=== PATIENT | female | born 1945 | race Two or more races ===

== ENCOUNTER → 2017-02-23 | Emergency (ER) | payer OTHER ==
[~2017-02-23] VITALS: Ht 160 cm; Wt 80.7 kg
[~2017-02-23] MED LIST: ACCUPRIL40 MG; ADULT ASPIRIN81 MG; CARVEDILOL3.125 MG; COREG CR10 MG; DILTIAZEM 24HR120 MG; NORVASC5 MG; PRAVASTATIN SOD40 MG
== END | disposition home or self-care (01) ==
LOC: ER 12:01
DX: N39.0 Urinary tract infection, site not specified (principal); N30.90 Cystitis, unspecified without hematuria

== ENCOUNTER 2017-06-19 23:00 | Emergency (ER) | payer OTHER ==
[~2017-06-19] VITALS: Ht 157.5 cm; Wt 80.7 kg
[2017-06-19] MEDS ORDERED: ASA325 M1 (23:19)
[2017-06-19] MEDS ORDERED: PRAVASTATIN SOD40 MG (23:19)
[2017-06-19] MEDS ORDERED: NEURONTIN300 MG (23:19)
[2017-06-19] MEDS ORDERED: CALTRATE 600 +1 EACH (23:20)
[2017-06-19] MEDS ORDERED: ALENDRONATE SOD70 MG (23:20)
[2017-06-19] MEDS ORDERED: OMEGA 3 1,0001 EACH (23:20)
== END 2017-06-20 07:08 | disposition home or self-care (01) ==
LOC: ER 23:00
DX: R00.2 Palpitations (principal)

== ENCOUNTER 2017-09-17 02:01 | Emergency (ER) | payer OTHER ==
[~2017-09-17] VITALS: Ht 160 cm; Wt 80.7 kg
[~2017-09-17 02:01] MED LIST changes: +ALENDRONATE SOD70 MG; +ASA325 M1; +CALTRATE 600 +1 EACH; +NEURONTIN300 MG; +OMEGA 3 1,0001 EACH
[2017-09-17] MEDS ORDERED: AVALIDE 300-121 EACH (02:06)
== END 2017-09-17 14:48 | disposition home or self-care (01) ==
LOC: ER 02:01
DX: I10 Essential (primary) hypertension (principal)

== ENCOUNTER 2017-10-04 03:03 | Emergency (ER) | payer OTHER ==
[~2017-10-04] VITALS: Ht 157.5 cm; Wt 81.6 kg
[~2017-10-04 03:03] MED LIST changes: +AVALIDE 300-121 EACH
== END 2017-10-04 06:39 | disposition home or self-care (01) ==
LOC: ER 03:03
DX: I10 Essential (primary) hypertension (principal)

== ENCOUNTER 2017-11-16 03:31 | Emergency (ER) | payer OTHER ==
[~2017-11-16] VITALS: Ht 157.5 cm; Wt 85.7 kg
[2017-11-16] MEDS ORDERED: AVALIDE 300-121 EACH PO (04:00)
[2017-11-16] MEDS ORDERED: CARVEDILOL3.125 MG PO (04:01)
[2017-11-16] MEDS ORDERED: PRAVASTATIN SOD40 MG PO (04:02)
[2017-11-16] MEDS ORDERED: IRBESARTAN300 MG PO (04:02)
== END 2017-11-16 08:22 | disposition home or self-care (01) ==
LOC: ER 03:31
DX: I16.0 Hypertensive urgency (principal); I10 Essential (primary) hypertension

== ENCOUNTER 2017-11-20 14:40 | Emergency (ER) | payer OTHER ==
[~2017-11-20] VITALS: Ht 152.4 cm; Wt 85.7 kg
[~2017-11-20 14:40] MED LIST changes: +AVALIDE 300-121 EACH PO; +CARVEDILOL3.125 MG PO; +IRBESARTAN300 MG PO; +PRAVASTATIN SOD40 MG PO
== END 2017-11-20 17:59 | disposition home or self-care (01) ==
LOC: ER 14:40
DX: M77.11 Lateral epicondylitis, right elbow (principal); M19.012 Primary osteoarthritis, left shoulder; M25.511 Pain in right shoulder

== ENCOUNTER 2017-12-15 10:19 | Emergency (ER) | payer OTHER ==
[~2017-12-15] VITALS: Ht 157.5 cm; Wt 81.6 kg
[2017-12-15] MEDS ORDERED: COREG (10:35)
[2017-12-15] MEDS ORDERED: ALENDRONAT70 MG/75 M (10:36)
[2017-12-15] MEDS ORDERED: CALTRATE 600+D1 EAC1 (10:37)
[2017-12-15] MEDS ORDERED: OMEGA 3 1,0001 EACH (10:37)
== END 2017-12-15 12:16 | disposition home or self-care (01) ==
LOC: ER 10:19
DX: L02.214 Cutaneous abscess of groin (principal)

== ENCOUNTER → 2017-12-24 | Emergency (ER) | payer OTHER ==
[~2017-12-24] VITALS: Ht 160 cm; Wt 85.7 kg
[~2017-12-24] MED LIST changes: +ALENDRONAT70 MG/75 M; +CALTRATE 600+D1 EAC1; +COREG
== END | disposition left against medical advice (07) ==
LOC: ER 04:39
DX: L02.214 Cutaneous abscess of groin (principal); L72.8 Other follicular cysts of the skin and subcutaneous tissue; B95.2 Enterococcus as the cause of diseases classified elsewhere

== ENCOUNTER 2018-05-03 14:52 | Outpatient (CLI) | payer OTHER | END 2018-05-03 15:12 | disposition home or self-care (01) | LOC: RAD 14:52 | DX: M25.551 Pain in right hip (principal); M25.552 Pain in left hip; M25.561 Pain in right knee; M25.562 Pain in left knee; M19.011 Primary osteoarthritis, right shoulder; M19.012 Primary osteoarthritis, left shoulder; M25.531 Pain in right wrist; M54.2 Cervicalgia; M54.5 Low back pain ==

== ENCOUNTER → 2018-05-17 | Outpatient (CLI) | payer OTHER | END | disposition home or self-care (01) | LOC: NUCLEAR 13:36 | DX: M81.0 Age-related osteoporosis without current pathological fracture (principal) ==

== ENCOUNTER → 2018-05-30 | Emergency (ER) | payer OTHER ==
[~2018-05-30] VITALS: Ht 157.5 cm; Wt 85.7 kg
== END | disposition left against medical advice (07) ==
LOC: ER 23:14
DX: Z53.20 Procedure and treatment not carried out because of patient's decision for unspecified reasons (principal)

== ENCOUNTER 2018-06-19 11:57 | Emergency (ER) | payer OTHER ==
[~2018-06-19] VITALS: Ht 152.4 cm; Wt 76.7 kg
== END 2018-06-19 20:01 | disposition home or self-care (01) ==
LOC: ER 11:57
DX: R19.7 Diarrhea, unspecified (principal)

== ENCOUNTER → 2018-06-19 | Emergency (ER) | payer OTHER | END | disposition left against medical advice (07) | LOC: ER 22:48 | DX: Z53.20 Procedure and treatment not carried out because of patient's decision for unspecified reasons (principal) ==

== ENCOUNTER 2018-07-29 02:38 | Emergency (ER) | payer OTHER ==
[~2018-07-29] VITALS: Ht 157.5 cm; Wt 83.9 kg
[2018-07-29] MEDS ORDERED: MEDROL8 MG PO (08:23)
[2018-07-29] MEDS ORDERED: ZYNCOF 20-400120 ML PO (08:23)
== END 2018-07-29 08:36 | disposition home or self-care (01) ==
LOC: ER 02:38
DX: T78.1XXA Other adverse food reactions, not elsewhere classified, initial encounter (principal); R21 Rash and other nonspecific skin eruption

== ENCOUNTER 2018-08-14 05:55 | Emergency (ER) | payer OTHER ==
[~2018-08-14] VITALS: Ht 157.5 cm; Wt 85.7 kg
[~2018-08-14 05:55] MED LIST changes: +MEDROL8 MG PO; +ZYNCOF 20-400120 ML PO
== END 2018-08-14 09:59 | disposition home or self-care (01) ==
LOC: ER 05:55
DX: S90.31XA Contusion of right foot, initial encounter (principal); R60.0 Localized edema; T78.1XXA Other adverse food reactions, not elsewhere classified, initial encounter; W22.8XXA Striking against or struck by other objects, initial encounter; X58.XXXA Exposure to other specified factors, initial encounter; Y93.89 Activity, other specified; Y92.89 Other specified places as the place of occurrence of the external cause; Y99.8 Other external cause status

== ENCOUNTER 2018-09-28 11:37 | Emergency (ER) | payer OTHER ==
[~2018-09-28] VITALS: Ht 157.5 cm; Wt 85.7 kg
== END 2018-09-28 16:53 | disposition home or self-care (01) ==
LOC: ER 11:37
DX: N64.4 Mastodynia (principal); N61.0 Mastitis without abscess

== ENCOUNTER → 2018-12-02 | Emergency (ER) | payer OTHER ==
[~2018-12-02] VITALS: Ht 157.5 cm; Wt 85.7 kg
[~2018-12-02] MED LIST changes: +ETODOLAC500 M1
== END | disposition home or self-care (01) ==
LOC: ER 22:56
DX: T78.49XA Other allergy, initial encounter (principal); X58.XXXA Exposure to other specified factors, initial encounter

== ENCOUNTER 2018-12-12 02:31 | Emergency (ER) | payer OTHER ==
[~2018-12-12] VITALS: Ht 157.5 cm; Wt 85.7 kg
[2018-12-12] MEDS ORDERED: AVALIDE 300-121 EACH (02:33)
[2018-12-12] MEDS ORDERED: MEDROL8 MG PO ×2 (08:00→08:01)
[2018-12-12] MEDS ORDERED: BENADRYL25 MG PO (08:00)
== END 2018-12-12 08:09 | disposition home or self-care (01) ==
LOC: ER 02:31
DX: T78.1XXA Other adverse food reactions, not elsewhere classified, initial encounter (principal); R21 Rash and other nonspecific skin eruption; L29.8 Other pruritus; X58.XXXA Exposure to other specified factors, initial encounter

== ENCOUNTER → 2018-12-15 | Emergency (ER) | payer OTHER ==
[~2018-12-15] VITALS: Ht 157.5 cm; Wt 85.7 kg
[~2018-12-15] MED LIST changes: +BENADRYL25 MG PO; +PYRIDIUM100 MG PO
== END | disposition home or self-care (01) ==
LOC: ER 17:02
DX: J06.9 Acute upper respiratory infection, unspecified (principal); N39.0 Urinary tract infection, site not specified; B96.29 Other Escherichia coli [E. coli] as the cause of diseases classified elsewhere; B96.1 Klebsiella pneumoniae [K. pneumoniae] as the cause of diseases classified elsewhere; R31.29 Other microscopic hematuria

== ENCOUNTER 2018-12-16 09:06 | Emergency (ER) | payer OTHER ==
[~2018-12-16] VITALS: Ht 172.7 cm; Wt 85.7 kg
[~2018-12-16 09:06] MED LIST changes: -PYRIDIUM100 MG PO
[2018-12-17] MEDS ORDERED: PYRIDIUM100 MG PO (03:25)
== END 2018-12-16 18:22 | disposition home or self-care (01) ==
LOC: ER 09:06
DX: B33.8 Other specified viral diseases (principal); B96.0 Mycoplasma pneumoniae [M. pneumoniae] as the cause of diseases classified elsewhere; N39.0 Urinary tract infection, site not specified; B96.29 Other Escherichia coli [E. coli] as the cause of diseases classified elsewhere; B96.1 Klebsiella pneumoniae [K. pneumoniae] as the cause of diseases classified elsewhere

== ENCOUNTER 2018-12-17 00:52 | Emergency (ER) | payer OTHER ==
[~2018-12-17] VITALS: Ht 157.5 cm; Wt 85.7 kg
[2018-12-17] MEDS ORDERED: PYRIDIUM100 MG PO (03:25)
== END 2018-12-17 03:48 | disposition home or self-care (01) ==
LOC: ER 00:52
DX: R30.0 Dysuria (principal)

== ENCOUNTER 2019-01-18 01:26 | Emergency (ER) | payer OTHER ==
[~2019-01-18] VITALS: Ht 157.5 cm; Wt 85.7 kg
[~2019-01-18 01:26] MED LIST changes: +PYRIDIUM100 MG PO
== END 2019-01-18 06:24 | disposition home or self-care (01) ==
LOC: ER 01:26
DX: K52.89 Other specified noninfective gastroenteritis and colitis (principal)

== ENCOUNTER 2019-02-12 23:24 | Emergency (ER) | payer OTHER ==
[~2019-02-12] VITALS: Ht 154.9 cm; Wt 99.8 kg
== END 2019-02-13 06:34 | disposition home or self-care (01) ==
LOC: ER 23:24
DX: M25.551 Pain in right hip (principal)

== ENCOUNTER → 2019-03-05 14:58 | Outpatient (CLI) | payer OTHER | END | disposition home or self-care (01) | LOC: LAB 14:58 | DX: N39.0 Urinary tract infection, site not specified (principal) ==

== ENCOUNTER 2019-04-20 01:49 | Emergency (ER) | payer OTHER ==
[~2019-04-20] VITALS: Ht 157.5 cm; Wt 89.8 kg
[2019-04-20] MEDS ORDERED: ALLEGRA ALLERGY60 MG (02:06)
[2019-04-20] MEDS ORDERED: ALLEGRA ALLERG180 MG PO (04:36)
== END 2019-04-20 05:18 | disposition home or self-care (01) ==
LOC: ER 01:49
DX: L50.0 Allergic urticaria (principal)

== ENCOUNTER → 2019-06-09 | Emergency (ER) | payer OTHER ==
[~2019-06-09] VITALS: Ht 157.5 cm; Wt 85.7 kg
[~2019-06-09] MED LIST changes: +ALLEGRA ALLERG180 MG PO; +ALLEGRA ALLERGY60 MG
== END | disposition left against medical advice (07) ==
LOC: ER 14:05
DX: L53.8 Other specified erythematous conditions (principal); R60.0 Localized edema; T78.49XA Other allergy, initial encounter; X58.XXXA Exposure to other specified factors, initial encounter

== ENCOUNTER 2019-07-22 14:31 | Outpatient (CLI) | payer OTHER | END 2019-07-22 14:50 | disposition home or self-care (01) | LOC: MAMO-SONO 14:31 | DX: Z12.31 Encounter for screening mammogram for malignant neoplasm of breast (principal); Z87.898 Personal history of other specified conditions; N63.0 Unspecified lump in unspecified breast ==

== ENCOUNTER 2019-08-05 12:11 | Outpatient (CLI) | payer OTHER | END 2019-08-05 13:58 | disposition home or self-care (01) | LOC: RAD 12:11 | PROVIDERS: ATTEND Orthopaedic Surgery | DX: M25.511 Pain in right shoulder (principal); M25.512 Pain in left shoulder; M25.561 Pain in right knee; M25.562 Pain in left knee | CPT/HCPCS: 73221; 73721 ==

== ENCOUNTER 2019-08-08 11:10 | Outpatient (CLI) | payer OTHER | END 2019-08-08 11:30 | disposition home or self-care (01) | LOC: NUCLEAR 11:10 | PROVIDERS: ATTEND Orthopaedic Surgery | DX: M25.461 Effusion, right knee (principal); M79.604 Pain in right leg; M79.605 Pain in left leg; R60.0 Localized edema ==

== ENCOUNTER 2019-09-12 00:50 | Emergency (ER) | payer OTHER ==
[~2019-09-12] VITALS: Ht 157.5 cm; Wt 84.4 kg
== END 2019-09-12 08:35 | disposition home or self-care (01) ==
LOC: ER 00:50
DX: L29.8 Other pruritus (principal)

== ENCOUNTER 2019-10-06 07:37 | Emergency (ER) | payer OTHER ==
[~2019-10-06] VITALS: Ht 157.5 cm; Wt 84.4 kg
== END 2019-10-06 11:52 | disposition home or self-care (01) ==
LOC: ER 07:37
DX: R21 Rash and other nonspecific skin eruption (principal); T78.49XA Other allergy, initial encounter; X58.XXXA Exposure to other specified factors, initial encounter

== ENCOUNTER 2019-10-08 19:16 | Emergency (ER) | payer OTHER ==
[~2019-10-08] VITALS: Ht 157.5 cm; Wt 84.4 kg
== END 2019-10-09 08:11 | disposition home or self-care (01) ==
LOC: ER 19:16
DX: R42 Dizziness and giddiness (principal)

== ENCOUNTER 2019-10-23 08:51 | Outpatient (CLI) | payer OTHER | END 2019-10-23 09:00 | disposition home or self-care (01) | LOC: SONOGRAMA 08:51 | PROVIDERS: ATTEND Pathology Anatomic Pathology | DX: N60.11 Diffuse cystic mastopathy of right breast (principal); N60.12 Diffuse cystic mastopathy of left breast ==

== ENCOUNTER 2019-11-09 03:03 | Emergency (ER) | payer OTHER ==
[~2019-11-09] VITALS: Ht 172.7 cm; Wt 108.9 kg
== END 2019-11-09 03:58 | disposition home or self-care (01) ==
LOC: ER 03:03
DX: R06.02 Shortness of breath (principal)

== ENCOUNTER 2020-03-21 14:46 | Emergency (ER) | payer OTHER ==
[~2020-03-21] VITALS: Ht 157.5 cm; Wt 83.9 kg
[2020-03-21] MEDS ORDERED: ADULT LOW DOSE81 M1 PO (15:51)
[2020-03-21] MEDS ORDERED: CLARITIN10 M1 PO (15:52)
== END 2020-03-21 17:37 | disposition home or self-care (01) ==
LOC: ER 14:46
DX: T78.1XXA Other adverse food reactions, not elsewhere classified, initial encounter (principal); L29.8 Other pruritus; R60.0 Localized edema; X58.XXXA Exposure to other specified factors, initial encounter

== ENCOUNTER 2020-10-20 23:05 | Emergency (ER) | payer OTHER ==
[~2020-10-20] VITALS: Ht 162.6 cm; Wt 99.8 kg
[~2020-10-20 23:05] MED LIST changes: +ADULT LOW DOSE81 M1 PO; +CLARITIN10 M1 PO
[2020-10-21] MEDS ORDERED: KETO10TA2 PO (01:12)
== END 2020-10-21 | disposition home or self-care (01) ==
LOC: ER 23:05
DX: G89.18 Other acute postprocedural pain (principal); M54.2 Cervicalgia; Z48.01 Encounter for change or removal of surgical wound dressing

== ENCOUNTER 2021-06-17 00:08 | Emergency (ER) | payer OTHER ==
[~2021-06-17] VITALS: Ht 157.5 cm; Wt 83.5 kg
[~2021-06-17 00:08] MED LIST changes: +KETO10TA2 PO
[2021-06-17] MEDS ORDERED: METRONIDAZOLE500 MG PO (09:55)
[2021-06-17] MEDS ORDERED: INTESTINEX680 M1 PO (09:55)
[2021-06-17] MEDS ORDERED: PEPCID AC20 MG PO (09:55)
== END 2021-06-17 13:28 | disposition home or self-care (01) ==
LOC: ER 00:08
DX: R19.7 Diarrhea, unspecified (principal)

== ENCOUNTER → 2021-08-10 | Outpatient (CLI) | payer OTHER ==
[~2021-08-10] MED LIST changes: +INTESTINEX680 M1 PO; +METRONIDAZOLE500 MG PO; +PEPCID AC20 MG PO
== END | disposition home or self-care (01) ==
LOC: MAMO-SONO 08-03 15:00
PROVIDERS: ATTEND Surgery
DX: N60.11 Diffuse cystic mastopathy of right breast (principal); N60.12 Diffuse cystic mastopathy of left breast; E04.0 Nontoxic diffuse goiter

== ENCOUNTER 2021-08-15 11:54 | Emergency (ER) | payer OTHER ==
[~2021-08-15] VITALS: Ht 152.4 cm
== END 2021-08-15 16:00 | disposition home or self-care (01) ==
LOC: ER 11:54
DX: K52.9 Noninfective gastroenteritis and colitis, unspecified (principal); Z20.822 Contact with and (suspected) exposure to COVID-19; I10 Essential (primary) hypertension; Z88.8 Allergy status to other drugs, medicaments and biological substances

== ENCOUNTER 2022-01-14 04:31 | Emergency (ER) | payer OTHER ==
[~2022-01-14] VITALS: Ht 160 cm; Wt 81.6 kg
[2022-01-14] MEDS ORDERED: KETO10TA2 PO (05:13)
[2022-01-14] MEDS ORDERED: NORFLEX100MG PO (05:13)
== END 2022-01-14 09:16 | disposition home or self-care (01) ==
LOC: ER 04:31
DX: M25.511 Pain in right shoulder (principal); Z88.8 Allergy status to other drugs, medicaments and biological substances